=== PATIENT | male | born 1995 | race Caucasian/White ===

== ENCOUNTER 2022-01-12 19:45 | Emergency (ER) | payer SELFPAY ==
[~2022-01-12] VITALS: Ht 177.8 cm; Wt 72.0 kg
[2022-01-12 19:51] VITALS: BP 177/74; TEMP 98.3
[2022-01-12] MEDS ORDERED: GOOD SENSE TRIP1 OI1 TP (20:36)
[2022-01-12 20:44] VITALS: PULSE 60
== END 2022-01-12 20:44 | disposition home or self-care (01) ==
LOC: COL.ER 19:45
DX: T22.211A Burn of second degree of right forearm, initial encounter (principal); T22.212A Burn of second degree of left forearm, initial encounter; T23.272A Burn of second degree of left wrist, initial encounter; T31.0 Burns involving less than 10% of body surface; Z28.310 Unvaccinated for COVID-19; Z23 Encounter for immunization; X10.2XXA Contact with fats and cooking oils, initial encounter; Y92.59 Other trade areas as the place of occurrence of the external cause; Y99.0 Civilian activity done for income or pay